=== PATIENT | female | born 1955 | race Caucasian/White ===

== ENCOUNTER 2019-12-05 23:04 | Inpatient (IN) | payer BC, OTHER ==
[~2019-12-05] VITALS: Ht 157.5 cm; Wt 90.6 kg
[~2019-12-05 23:04] MED LIST: AMOX1TAB64 PO; LEVO125T5 PO; OMEP-110 PO
--- NOTE | 2019-12-05 23:31 | NUR ---
PT HAS HISTORY OF GI BLEED IN THE PAST, STATES THIS IS SIMILAR. PT SAYS SHE HAS BEEN HAVING BLACK TARRY STOOLS FOR THE PAST FEW DAYS, LIKELY SECONDARY TO HER FATTY LIVER CIRRHOSIS. PT HAS HISTORY OF MANY MULTIPLE BANDING PROCEDURES. DENIES ANY ACTIVE NAUSEA VOMITING. DENIES ANY FURTHER NEEDS OR CONCERNS AT THIS TIME. CALL LIGHT IN REACH.
[2019-12-05] MEDS ORDERED: PANTOPRAZOLE 80 MG in SODIUM CHLORIDE 0.9% 50 ML IVPB ONE (23:38)
[2019-12-05] MEDS ORDERED: PANTOPRAZOLE 80 MG in SODIUM CHLORIDE 0.9% 100 ML IV SCH (23:45)
[2019-12-06] MEDS ORDERED: SODIUM CHLORIDE FLUSH 10ML SYR IVF ONE
[2019-12-06 00:06] LABS: INTERNATIONAL NORMALIZED RATIO 1.07 (0.93-1.1); PROTHROMBIN TIME 11.4 Seconds (9.6-11.5)
[2019-12-06 00:07] LABS: ANION GAP 6 mmol/L (5-15); CALCIUM 8.5 mg/dL (8.5-10.1); CHLORIDE 112 mmol/L (98-107); CREATININE 0.74 mg/dL (0.55-1.02)
[2019-12-06 00:08] LABS: ALANINE AMINOTRANSFERASE 37 U/L (12-78); ALBUMIN 3.5 g/dL (3.4-5.0)
[2019-12-06 00:10] LABS: ALKALINE PHOSPHATASE 93 U/L (45-117); BILIRUBIN,TOTAL 0.3 mg/dL (0.2-1.0); TOTAL PROTEIN 7.3 g/dL (6.4-8.2)
--- NOTE | 2019-12-06 00:13 | NUR ---
PROTONIX BOLUS INFUSING WITHOUT ISSUE. PT PROVIDED WITH PILLOW AND WARM BLANKETS PER REQUEST. DENIES ANY FURTHER NEEDS OR CONCERNS AT THIS TIME. CALL LIGHT IN REACH.
[2019-12-06 00:32] LABS: MEAN CORPUSCULAR HEMOGLOBIN 30.1 pg (27.0-34.8); MEAN CORPUSCULAR HGB CONC 33.6 g/dL (32.4-35.8); MEAN CORPUSCULAR VOLUME 89.7 fL (80-100); MEAN PLATELET VOLUME 9.7 fL (7.4-10.4); PLATELET COUNT 100 x10^3/uL (130-400); RED BLOOD COUNT 3.78 x10^6/uL (3.82-5.3); RED CELL DISTRIBUTION WIDTH 15.1 % (9.6-15.2)
[2019-12-06 00:35] LABS: BASOPHILS # (AUTO) 0.03 x10^3/uL (0-0.1); BASOPHILS % (AUTO) 1 % (0-1); EOSINOPHILS # (AUTO) 0.19 x10^3/uL (0-0.4); EOSINOPHILS % (AUTO) 5 % (1-7); LYMPHOCYTES # (AUTO) 0.74 x10^3/uL (1-3.4); LYMPHOCYTES % (AUTO) 20 % (22-44); MD SCAN; MONOCYTES # (AUTO) 0.31 x10^3/uL (0.2-0.8); MONOCYTES % (AUTO) 8 % (2-9); NEUTROPHILS # (AUTO) 2.39 x10^3/uL (1.8-6.8); NEUTROPHILS % (AUTO) 66 % (42-75)
[2019-12-06] MEDS ORDERED: SODIUM CHLORIDE 0.9% 1,000 ML IV ONE (00:48)
[2019-12-06] MEDS ORDERED: SODIUM CHLORIDE FLUSH 10ML SYR IVF PRN (01:00)
--- NOTE | 2019-12-06 01:04 | NUR ---
PT UP TO RESTROOM AND BACK, STRONG INDEPENDENT GAIT. RECONNECTED TO MONITORS. DENIES ANY FURTHER NEEDS OR CONCERNS. CALL LIGHT IN REACH.
--- NOTE | 2019-12-06 01:27 | NUR ---
REPORT TO SALENA HOBBS RN. PT UPDATED ON PLAN OF CARE. VERBALIZES UNDERSTANDING. DENIES ANY FURTHER NEEDS OR CONCERNS. CALL LIGHT IN REACH, AWAITING TRANSPORT AT THIS TIME.
[2019-12-06] MEDS ORDERED: hydrALAzine 20 MG/ML, 1ML IVPush PRN (01:30)
[2019-12-06] MEDS ORDERED: ONDANSETRON 2MG/ML, 2ML IVPush PRN ×2 (01:30→13:00)
[2019-12-06] MEDS ORDERED: PANTOPRAZOLE 80 MG in SODIUM CHLORIDE 0.9% 100 ML IV SCH (02:00)
[2019-12-06] MEDS ORDERED: OMNIPAQUE 350 MG/ML, 100ML BOTTLE ONE (03:22)
[2019-12-06] MEDS: OCTREOTIDE 500 MCG in SODIUM CHLORIDE 0.9% 99 ML IV SCH ×2 (03:34→17:50)
[2019-12-06] MEDS: LACTATED RINGERS 1,000 ML IV SCH ×2 (03:35→19:44)
[2019-12-06 03:40] VITALS: BP 113/63
[2019-12-06] MEDS: LEVOTHYROXINE 125 MCG TABLET PO SCH (05:39)
[2019-12-06 06:57] VITALS: BP 104/46
[2019-12-06 07:33] VITALS: BP 103/65
[2019-12-06] MEDS: CEFTRIAXONE PMX 2GM/50ML 50 ML IV SCH (11:09)
[2019-12-06] MEDS ORDERED: CHLORHEXIDINE 15 ML UDC ONE (12:08)
[2019-12-06] MEDS ORDERED: PROPOFOL 10 MG/ML, 50ML ONE (12:16)
[2019-12-06] MEDS ORDERED: CHLORHEXIDINE 15 ML UDC MM ONE (12:30)
[2019-12-06] MEDS ORDERED: FENTANYL PF 100 MCG/2ML ONE (12:47)
[2019-12-06] MEDS ORDERED: HYDROmorphone 1 MG/ML, 1ML INJ ONE (12:48)
[2019-12-06] MEDS: FENTANYL PF 100 MCG/2ML IV PRN ×2 (12:52→12:59)
[2019-12-06] MEDS ORDERED: MIDAZOLAM 1 MG/ML, 2ML IV PRN (13:00)
[2019-12-06] MEDS ORDERED: ACETAMINOPHEN 325 MG TABLET PO PRN (13:00)
[2019-12-06] MEDS ORDERED: LORazepam 2 MG/ML, 1ML IVPush PRN (13:00)
[2019-12-06] MEDS ORDERED: HYDROmorphone 1 MG/ML, 1ML INJ IVPush PRN (13:00)
[2019-12-06] MEDS ORDERED: MEPERIDINE/PF 25MG/0.5ML IVPush PRN (13:00)
[2019-12-06] MEDS: PANTOPRAZOLE 40 MG IV IVPush SCH (13:48)
[2019-12-06 14:17] VITALS: BP 119/78
[2019-12-06] MEDS: ACETAMINOPHEN 325 MG TABLET PO PRN (17:50)
[2019-12-06 19:05] VITALS: BP 110/70
[2019-12-07] MEDS: PANTOPRAZOLE 40 MG IV IVPush SCH ×2 (01:56→13:39)
[2019-12-07] MEDS: OCTREOTIDE 500 MCG in SODIUM CHLORIDE 0.9% 99 ML IV SCH ×3 (02:39→23:04)
[2019-12-07 02:40] VITALS: BP 118/74
[2019-12-07 05:03] LABS: BASOPHILS # (AUTO) 0.03 x10^3/uL (0-0.1); BASOPHILS % (AUTO) 1 % (0-1); EOSINOPHILS # (AUTO) 0.35 x10^3/uL (0-0.4); EOSINOPHILS % (AUTO) 8 % (1-7); LYMPHOCYTES # (AUTO) 0.76 x10^3/uL (1-3.4); LYMPHOCYTES % (AUTO) 17 % (22-44); MD NO; MEAN CORPUSCULAR HEMOGLOBIN 29.8 pg (27.0-34.8); MEAN CORPUSCULAR HGB CONC 32.8 g/dL (32.4-35.8); MEAN PLATELET VOLUME 10.3 fL (7.4-10.4); MONOCYTES # (AUTO) 0.32 x10^3/uL (0.2-0.8); MONOCYTES % (AUTO) 7 % (2-9); NEUTROPHILS # (AUTO) 2.93 x10^3/uL (1.8-6.8); NEUTROPHILS % (AUTO) 67 % (42-75); PLATELET COUNT 108 x10^3/uL (130-400); RED BLOOD COUNT 4.04 x10^6/uL (3.82-5.3); RED CELL DISTRIBUTION WIDTH 15.6 % (9.6-15.2)
[2019-12-07 05:05] LABS: ANION GAP 9 mmol/L (5-15); CALCIUM 8.3 mg/dL (8.5-10.1); CHLORIDE 107 mmol/L (98-107); CREATININE 0.83 mg/dL (0.55-1.02)
[2019-12-07] MEDS: LEVOTHYROXINE 125 MCG TABLET PO SCH (06:13)
[2019-12-07 07:44] VITALS: BP 121/59
[2019-12-07] MEDS: CEFTRIAXONE PMX 2GM/50ML 50 ML IV SCH (08:42)
[2019-12-07 12:46] VITALS: BP 109/66
[2019-12-07] MEDS: ACETAMINOPHEN 325 MG TABLET PO PRN (16:53)
[2019-12-07 19:16] VITALS: BP 117/71
[2019-12-07] MEDS: ATORVASTATIN 10 MG TABLET PO SCH (21:26)
[2019-12-08 01:17] VITALS: BP 105/68
[2019-12-08] MEDS: PANTOPRAZOLE 40 MG IV IVPush SCH ×2 (01:47→12:43)
[2019-12-08 04:54] LABS: BASOPHILS # (AUTO) 0.03 x10^3/uL (0-0.1); BASOPHILS % (AUTO) 1 % (0-1); EOSINOPHILS # (AUTO) 0.28 x10^3/uL (0-0.4); EOSINOPHILS % (AUTO) 7 % (1-7); LYMPHOCYTES # (AUTO) 0.76 x10^3/uL (1-3.4); LYMPHOCYTES % (AUTO) 18 % (22-44); MD NO; MEAN CORPUSCULAR HEMOGLOBIN 29.6 pg (27.0-34.8); MEAN CORPUSCULAR HGB CONC 32.7 g/dL (32.4-35.8); MEAN CORPUSCULAR VOLUME 90.6 fL (80-100); MEAN PLATELET VOLUME 10.2 fL (7.4-10.4); MONOCYTES # (AUTO) 0.37 x10^3/uL (0.2-0.8); MONOCYTES % (AUTO) 9 % (2-9); NEUTROPHILS # (AUTO) 2.81 x10^3/uL (1.8-6.8); NEUTROPHILS % (AUTO) 66 % (42-75); PLATELET COUNT 106 x10^3/uL (130-400); RED BLOOD COUNT 4.09 x10^6/uL (3.82-5.3); RED CELL DISTRIBUTION WIDTH 15.5 % (9.6-15.2)
[2019-12-08 05:04] LABS: ANION GAP 8 mmol/L (5-15); CALCIUM 8.4 mg/dL (8.5-10.1); CHLORIDE 107 mmol/L (98-107); CREATININE 0.91 mg/dL (0.55-1.02)
[2019-12-08] MEDS: LEVOTHYROXINE 125 MCG TABLET PO SCH (06:24)
[2019-12-08 08:45] VITALS: BP 118/71
[2019-12-08] MEDS: POLYETHYLENE GLYCOL 17 GM PACKET PO SCH (09:30)
[2019-12-08] MEDS ORDERED: BISACODYL 10 MG SUPP PR PRN (09:30)
[2019-12-08] MEDS: OCTREOTIDE 500 MCG in SODIUM CHLORIDE 0.9% 99 ML IV SCH ×2 (10:26→19:39)
[2019-12-08] MEDS: CEFTRIAXONE PMX 2GM/50ML 50 ML IV SCH (10:26)
[2019-12-08] MEDS: SENNA/DOCUSATE TABLET PO SCH (10:27)
[2019-12-08 14:04] VITALS: BP 103/64
[2019-12-08 18:53] VITALS: BP 118/77
[2019-12-08] MEDS: ATORVASTATIN 10 MG TABLET PO SCH (21:50)
[2019-12-09 01:40] VITALS: BP 106/67
[2019-12-09] MEDS: OCTREOTIDE 500 MCG in SODIUM CHLORIDE 0.9% 99 ML IV SCH (04:53)
[2019-12-09] MEDS: LEVOTHYROXINE 125 MCG TABLET PO SCH (04:57)
[2019-12-09] MEDS ORDERED: PANTOPRAZOLE 40MG TABLET PO SCH (06:00)
[2019-12-09 07:05] VITALS: BP 113/73
[2019-12-09] MEDS: POLYETHYLENE GLYCOL 17 GM PACKET PO SCH (09:00)
[2019-12-09] MEDS: CEFTRIAXONE PMX 2GM/50ML 50 ML IV SCH (09:24)
[2019-12-09] MEDS: SENNA/DOCUSATE TABLET PO SCH (09:24)
[2019-12-09] MEDS ORDERED: ATOR10TA9 PO (09:38)
[2019-12-09] MEDS ORDERED: CEFD300C37 PO (09:38)
[2019-12-09] MEDS ORDERED: PROP10TA16 PO (11:23)
== END 2019-12-09 13:59 | disposition home or self-care (01) | DRG 441 ==
LOC: ED 23:45 → EDIP 12-06 01:56 → 3N 12-06 02:01
PROVIDERS: ADMIT Hospitalist; ATTEND Hospitalist
PROC: 06L38CZ Occlusion of Esophageal Vein with Extraluminal Device, Via Natural or Artificial Opening Endoscopic (ICD-10-PCS; principal; 2019-12-06 11:30)
DX: K76.6 Portal hypertension (principal); I85.11 Secondary esophageal varices with bleeding; D62 Acute posthemorrhagic anemia; R18.8 Other ascites; K31.89 Other diseases of stomach and duodenum; E03.9 Hypothyroidism, unspecified; D69.6 Thrombocytopenia, unspecified; K75.81 Nonalcoholic steatohepatitis (NASH); K44.9 Diaphragmatic hernia without obstruction or gangrene; K21.9 Gastro-esophageal reflux disease without esophagitis; Z85.3 Personal history of malignant neoplasm of breast; Z90.49 Acquired absence of other specified parts of digestive tract; Z90.13 Acquired absence of bilateral breasts and nipples; Z88.8 Allergy status to other drugs, medicaments and biological substances; Z90.710 Acquired absence of both cervix and uterus; Z79.899 Other long term (current) drug therapy
CPT/HCPCS: 36415; 71045; 74177; 80048; 80053; 82105; 83036; 83735; 84100; 85014; 85018; 85025; 85610; 85730; 86850; 86900; 93005; G0378; J0696; J2354; J2704; J3010; Q9967; C9113; J7120

== ENCOUNTER 2020-01-30 12:10 | Day surgery (SDC) | payer OTHER ==
[~2020-01-30] VITALS: Ht 157.5 cm; Wt 85.2 kg
[~2020-01-30 12:10] MED LIST changes: +ATOR10TA9 PO; +CEFAZOLIN 1,000 MG ONE; +CEFD300C37 PO; +GLYCOPYRROLATE 0.2MG/1ML, 5ML ONE; +LIDOCAINE PF 2%, 5ML ONE; +PROP10TA16 PO; +PROPOFOL 10 MG/ML, 20ML ONE
[2020-01-30 12:38] VITALS: BP 117/81
[2020-01-30] MEDS ORDERED: CHLORHEXIDINE 15 ML UDC ONE (12:45)
[2020-01-30] MEDS ORDERED: LACTATED RINGERS 1,000 ML IV SCH (12:46)
[2020-01-30] MEDS ORDERED: LEVO125T5 PO (12:59)
[2020-01-30] MEDS ORDERED: propanolol PO (12:59)
[2020-01-30] MEDS ORDERED: OMEP-110 PO (12:59)
[2020-01-30] MEDS ORDERED: CHLORHEXIDINE 15 ML UDC MM ONE (13:00)
[2020-01-30] MEDS ORDERED: MIDAZOLAM 1 MG/ML, 2ML ONE (13:16)
[2020-01-30] MEDS ORDERED: ALBUTEROL/IPRATROPIUM 2.5MG/0.5MG, 3 ML NPPB PRN (14:30)
[2020-01-30] MEDS ORDERED: LORazepam 2 MG/ML, 1ML IVPush PRN (14:30)
[2020-01-30] MEDS ORDERED: FENTANYL PF 100 MCG/2ML IV PRN (14:30)
[2020-01-30] MEDS ORDERED: DIPHENHYDRAMINE 50 MG/ML, 1ML IVPush PRN (14:30)
[2020-01-30] MEDS ORDERED: hydrALAzine 20 MG/ML, 1ML IV PRN (14:30)
[2020-01-30] MEDS ORDERED: EPHEDRINE 50 MG/ML, 1ML IM PRN (14:30)
[2020-01-30] MEDS ORDERED: METOCLOPRAMIDE 5 MG/ML, 2ML IVPush PRN (14:30)
[2020-01-30] MEDS ORDERED: MEPERIDINE/PF 25MG/0.5ML IVPush PRN (14:30)
[2020-01-30] MEDS ORDERED: MIDAZOLAM 1 MG/ML, 2ML IV PRN (14:30)
[2020-01-30] MEDS ORDERED: EPHEDRINE 50 MG/ML, 1ML IVPush PRN (14:30)
[2020-01-30] MEDS ORDERED: HYDROcodone/APAP 7.5-325MG/15ML UDC PO PRN (14:30)
[2020-01-30] MEDS ORDERED: LABETALOL 5MG/ML, 20ML IV PRN (14:30)
[2020-01-30] MEDS ORDERED: HALOPERIDOL 5 MG/ML IV PRN (14:30)
[2020-01-30] MEDS ORDERED: DIAZEPAM 5 MG/ML, 2ML IVPush PRN (14:30)
[2020-01-30] MEDS ORDERED: OXYcodone 5 MG/5 ML ORAL.SOL UDC PO PRN (14:30)
[2020-01-30] MEDS ORDERED: HYDROmorphone 1 MG/ML, 1ML INJ IVPush PRN (14:30)
== END 2020-01-30 16:00 | disposition home or self-care (01) ==
LOC: OUT 12:10
PROVIDERS: ATTEND Internal Medicine Gastroenterology
DX: I85.01 Esophageal varices with bleeding (principal); Z11.59 Encounter for screening for other viral diseases; K76.6 Portal hypertension; K31.89 Other diseases of stomach and duodenum; E03.9 Hypothyroidism, unspecified; K21.9 Gastro-esophageal reflux disease without esophagitis; Z88.8 Allergy status to other drugs, medicaments and biological substances; Z98.890 Other specified postprocedural states; Z90.49 Acquired absence of other specified parts of digestive tract; Z90.710 Acquired absence of both cervix and uterus; Z79.899 Other long term (current) drug therapy; Z91.048 Other nonmedicinal substance allergy status; Z87.891 Personal history of nicotine dependence; Z85.3 Personal history of malignant neoplasm of breast; Z80.3 Family history of malignant neoplasm of breast; Z82.49 Family history of ischemic heart disease and other diseases of the circulatory system
CPT/HCPCS: 36415; 43244; 87635; J0690; J2250; J2704; J7120

== ENCOUNTER 2020-06-22 20:16 | Emergency (ER) | payer OTHER ==
[~2020-06-22] VITALS: Ht 157.5 cm; Wt 84.3 kg
[~2020-06-22 20:16] MED LIST changes: -CEFAZOLIN 1,000 MG ONE; -GLYCOPYRROLATE 0.2MG/1ML, 5ML ONE; -LIDOCAINE PF 2%, 5ML ONE; -PROPOFOL 10 MG/ML, 20ML ONE; +propanolol PO
--- NOTE | 2020-06-22 21:13 | NUR ---
PT TO ROOM FROM LOBBY
[2020-06-22 21:36] LABS: BASOPHILS % (AUTO) 1 % (0-1); EOSINOPHILS % (AUTO) 5 % (1-7); LYMPHOCYTES % (AUTO) 16 % (22-44); MEAN CORPUSCULAR HEMOGLOBIN 28.7 pg (27.0-34.8); MEAN CORPUSCULAR HGB CONC 32.7 g/dL (32.4-35.8); MEAN PLATELET VOLUME 9.3 fL (7.4-10.4); MONOCYTES % (AUTO) 7 % (2-9); NEUTROPHILS % (AUTO) 70 % (42-75); PLATELET COUNT 116 x10^3/uL (130-400); RED BLOOD COUNT 4.95 x10^6/uL (3.82-5.3); RED CELL DISTRIBUTION WIDTH 16.2 % (9.6-15.2)
[2020-06-22 21:41] LABS: ALANINE AMINOTRANSFERASE 43 U/L (12-78); ALBUMIN 3.7 g/dL (3.4-5.0); ANION GAP 4 mmol/L (5-15); CALCIUM 9.1 mg/dL (8.5-10.1); CHLORIDE 108 mmol/L (98-107); CREATININE 0.84 mg/dL (0.55-1.02)
[2020-06-22] MEDS ORDERED: KETOROLAC 30 MG/1 ML ONE (21:41)
[2020-06-22 21:43] LABS: ALKALINE PHOSPHATASE 106 U/L (45-117); BILIRUBIN,TOTAL 0.6 mg/dL (0.2-1.0); TOTAL PROTEIN 8.2 g/dL (6.4-8.2)
[2020-06-22 21:53] LABS: MICROSCOPIC INDICATED
[2020-06-22 21:53] LABS: MD NO
[2020-06-22] MEDS ORDERED: KETOROLAC 30 MG/1 ML IM ONE (22:00)
--- NOTE | 2020-06-22 22:00 | NUR ---
PT SITTING UPRIGHT ON GURNEY, NAD, VSS. PT REPORTS SLIGHT IMPROVEMENT IN PAIN FOLLOWING INSTRUMENTATION DESIGNER. PT DENIES ANY NEEDS AT THIS TIME. CALL LIGHT AND PERSONAL BELONGINGS WITHIN REACH. WILL CONTINUE TO MONITOR.
--- NOTE | 2020-06-22 23:03 | NUR ---
PT SITTING UPRIGHT ON GURNEY WITH EYES CLOSED, RESTING COMFORTABLY. NAD, VSS. PT DENIES ANY NEEDS AT THIS TIME. CALL LIGHT AND PERSONAL BELONGINGS IN REACH.
[2020-06-22] MEDS ORDERED: CEFDINIR 300 MG CAPSULE PO ONE (23:30)
[2020-06-22] MEDS ORDERED: CEFDINIR 300 MG CAPSULE ONE (23:31)
--- NOTE | 2020-06-22 23:52 | NUR ---
Patient given discharge instructions and they have confirmed that they understand the instructions. Patient ambulatory with steady gait.
[2020-06-22 23:53] VITALS: BP 111/56
== END 2020-06-22 23:55 | disposition home or self-care (01) ==
LOC: ED 21:41
DX: S39.012A Strain of muscle, fascia and tendon of lower back, initial encounter (principal); N30.00 Acute cystitis without hematuria; Z90.49 Acquired absence of other specified parts of digestive tract; Z90.710 Acquired absence of both cervix and uterus; Z85.3 Personal history of malignant neoplasm of breast; X58.XXXA Exposure to other specified factors, initial encounter; Y93.89 Activity, other specified; Y92.89 Other specified places as the place of occurrence of the external cause; Y99.8 Other external cause status
CPT/HCPCS: 36415; 74176; 80053; 81001; 85025; 87086; 96372; 99284; J1885